=== PATIENT | female | born 1970 | race Caucasian/White ===

== ENCOUNTER 2018-06-18 11:23 | Inpatient (IN) ==
[2018-06-18] MEDS ORDERED: HYDROmorphone PF Inj 2 MG/ML Vial IV.PUSH ONE (12:09)
--- NOTE | 2018-06-18 12:12 | ED ---
HPI General Chief complaint: Abdominal Pain Stated complaint: abd pain x today/n/d Time Seen by Provider: 06/18/18 14:19 Source: patient Mode of arrival: ambulatory Limitations: no limitations History of Present Illness HPI narrative: This 48-year-old female is complaining of abdominal pain. She says she started having pain around 2:00 this morning. The pain is across her upper abdomen. She has been nauseated. She has a history of Crohn's disease for 28 years. She has had several surgeries related to the Crohn's disease and is currently on Humira. She had a colonoscopy done a couple of weeks ago which showed some mild inflammation. The pain she is having now does not feel like her Crohn's disease to her. She does feel distended. She is concerned that she may have a blockage during gallbladder problem. She has never had a gallbladder problem in the past. She has been on Humira for the past 8 years. Related Data Home Medications Medication Instructions Recorded Confirmed Humira 06/18/18 Allergies Allergy/AdvReac Type Severity Reaction Status Date / Time No Known Allergies Allergy Mild none Uncoded 06/18/18 11:38 Review of Systems ROS: all other systems reviewed are negative [facility] Medical History Medical History Crohn disease (Acute) Lupus (Acute) Surgical History Surgical History History of appendectomy (Acute) History of bowel resection (Acute) History of partial hysterectomy (Acute) Social History Social History Substance History: No History of Abuse Second Hand Smoke Exposure: No Smoking Status: Former smoker Tobacco Type: Cigarettes How Often Do You Have a Drink Containing Alcohol: 2 to 4 times a month Recent Travel in [facility] [[email or web address] within the Last 8 Weeks: No Recent Out of Country Travel within the Last 8 Weeks: No Exam Narrative Exam Narrative: GENERAL: Well-developed female SKIN: Focused skin assessment warm/dry. HEAD: Atraumatic. Normocephalic. EYES: Pupils equal and round. No scleral icterus. No injection or drainage. ENT: No nasal bleeding or discharge. Mucous membranes pink and moist. NECK: Trachea midline. No JVD. CARDIOVASCULAR: Regular rate and rhythm. No murmur appreciated. RESPIRATORY: No accessory muscle use. Clear to auscultation. Breath sounds equal bilaterally. GASTROINTESTINAL: Abdomen soft, there is tenderness in the right upper quadrant in the epigastric area. There is some mild distention. MUSCULOSKELETAL: No obvious deformities. No clubbing. No cyanosis. No edema. NEUROLOGICAL: Awake and alert. No obvious cranial nerve deficits. Motor grossly within normal limits. Normal speech. PSYCHIATRIC: Appropriate mood and affect; insight and judgment normal. Course Initial Documented Vital Signs Temperature 98.1 F 06/18/18 11:35 Pulse Rate 118 H 06/18/18 11:35 Respiratory Rate 20 06/18/18 11:35 Blood Pressure 124/73 06/18/18 11:35 Pulse Oximetry 99 06/18/18 11:35 Last Documented Vital Signs Temperature 98.8 F 06/19/18 00:00 Pulse Rate 82 06/19/18 00:00 Respiratory Rate 16 06/19/18 00:00 Blood Pressure 117/56 L 06/19/18 00:00 Pulse Oximetry 95 06/19/18 00:00 Medical Decision Making MDM Narrative Medical decision making narrative: Patient has been given IV fluids. She has been given pain medication and initially she had good response however the pain has come back on her. An ultrasound was obtained and shows a 2.3 cm stone in the gallbladder which is thought to be lodged in the neck of the gallbladder as it does not move with decubitus position. I have discussed the case with Dr. Ngo who requests that the patient be transferred to the main hospital as there is a good chance that she will require an open procedure in view of her previous surgeries. She will be started on antibiotics Medical Screen Exam Complete: Yes Emergency Medical Condition: Yes Differential Diagnosis Differential Diagnosis: Differential includes bowel obstruction, cholelithiasis , cholecystitis Lab Data Result diagrams: 06/19/18 06:37 06/19/18 06:37 Lab Results 06/18/18 06/18/18 06/18/18 Range/Units 12:30 12:30 14:05 CBC w Diff Auto diff final WBC 5.6 (4.0-11.0) th/mm3 RBC 4.39 (4.00-5.30) mil/mm3 Hgb 13.2 (11.6-15.3) gm/dL Hct 38.9 (35.0-46.0) % MCV 88.5 (80.0-100.0) fL MCH 30.1 (27.0-34.0) pg MCHC 34.0 (32.0-36.0) % RDW 12.6 (11.6-17.2) % Plt Count 201 (150-450) th/mm3 MPV 7.4 (7.0-11.0) fL Neut % (Auto) 84.4 H (16.0-70.0) % Lymph % (Auto) 7.5 L (9.0-44.0) % [place] % (Auto) 6.1 (0.0-8.0) % Eos % (Auto) 0.5 (0.0-4.0) % Baso % (Auto) 1.5 (0.0-2.0) % Neut # (Auto) 4.8 (1.8-7.7) th/mm3 Lymph # (Auto) 0.4 L (1.0-4.8) th/mm3 [place] # (Auto) 0.3 (0.0-0.9) th/mm3 Eos # (Auto) 0.0 (0.0-0.4) th/mm3 Baso # (Auto) 0.1 (0.0-0.2) th/mm3 WBC Differential . Differential Comment . Sodium 138 (136-145) meq/L Potassium 3.9 (3.5-5.1) meq/L Chloride 108 H (98-107) meq/L Carbon Dioxide 22.2 (21.0-32.0) meq/L Anion Gap 8 (5-15) meq/L BUN 11 (7-18) mg/dL Creatinine 0.58 (0.50-1.00) mg/dL Estimated GFR Greater than 89 (>89) mL/min Random Glucose 111 H (74-106) mg/dL Calcium 8.4 L (8.5-10.1) mg/dL Magnesium 1.9 (1.5-2.5) mg/dL Total Bilirubin 0.3 (0.2-1.0) mg/dL AST 21 (15-37) U/L ALT 28 (10-53) U/L Alkaline Phosphatase 81 (45-117) U/L Total Protein 7.5 (6.4-8.2) g/dL Albumin 3.5 (3.4-5.0) g/dL Lipase 129 (73-393) U/L Urine Color Yellow (Yellw/Straw) Urine Clarity Clear (Clear) Urine pH 6.0 (5.0-8.5) Ur Specific [place] 1.010 (1.002-1.035) Urine Protein Negative (Neg-Trace) mg/dL Urine Glucose (UA) Negative (Negative) mg/dL Urine Ketones Negative (Negative) mg/dL Urine Occult Blood Trace (Negative) Urine Nitrate Negative (Negative) Urine Bilirubin Negative (Negative) Urine Urobilinogen 0.2 (Less than 2) mg/dL Ur Leukocyte Esterase Negative (Negative) Urine RBC 0-3 (0-3) /hpf Ur Squamous Epith Cells 0-5 (0-5) /hpf Urine Bacteria Rare H (None) /hpf Micro UA Comment Culture not ind Ur Microscopic Review Microscopic reviewed Urine Culture Comments Culture not ind 06/19/18 06/19/18 Range/Units 06:37 06:37 CBC w Diff WBC 3.1 L (4.0-11.0) th/mm3 RBC 3.99 L (4.00-5.30) mil/mm3 Hgb 12.1 (11.6-15.3) gm/dL Hct 35.8 (35.0-46.0) % MCV 89.9 (80.0-100.0) fL MCH 30.4 (27.0-34.0) pg MCHC 33.8 (32.0-36.0) % RDW 13.6 (11.6-17.2) % Plt Count 168 (150-450) th/mm3 MPV 7.8 (7.0-11.0) fL Neut % (Auto) 51.7 (16.0-70.0) % Lymph % (Auto) 31.2 (9.0-44.0) % [place] % (Auto) 16.2 H (0.0-8.0) % Eos % (Auto) 0.4 (0.0-4.0) % Baso % (Auto) 0.5 (0.0-2.0) % Neut # (Auto) 1.6 L (1.8-7.7) th/mm3 Lymph # (Auto) 1.0 (1.0-4.8) th/mm3 [place] # (Auto) 0.5 (0.0-0.9) th/mm3 Eos # (Auto) 0.0 (0.0-0.4) th/mm3 Baso # (Auto) 0.0 (0.0-0.2) th/mm3 WBC Differential . Differential Comment Auto diff final Sodium 144 (136-145) meq/L Potassium 3.4 L (3.5-5.1) meq/L Chloride 112 H (98-107) meq/L Carbon Dioxide 23.6 (21.0-32.0) meq/L Anion Gap 8 (5-15) meq/L BUN 4 L (7-18) mg/dL Creatinine 0.58 (0.50-1.00) mg/dL Estimated GFR Greater than 89 (>89) mL/min Random Glucose 85 (74-106) mg/dL Calcium 7.8 L (8.5-10.1) mg/dL Magnesium (1.5-2.5) mg/dL Total Bilirubin 0.4 (0.2-1.0) mg/dL AST 32 (15-37) U/L ALT 32 (10-53) U/L Alkaline Phosphatase 80 (45-117) U/L Total Protein 6.1 L D (6.4-8.2) g/dL Albumin 2.9 L D (3.4-5.0) g/dL Lipase (73-393) U/L Urine Color (Yellw/Straw) Urine Clarity (Clear) Urine pH (5.0-8.5) Ur Specific [place] (1.002-1.035) Urine Protein (Neg-Trace) mg/dL Urine Glucose (UA) (Negative) mg/dL Urine Ketones (Negative) mg/dL Urine Occult Blood (Negative) Urine Nitrate (Negative) Urine Bilirubin (Negative) Urine Urobilinogen (Less than 2) mg/dL Ur Leukocyte Esterase (Negative) Urine RBC (0-3) /hpf Ur Squamous Epith Cells (0-5) /hpf Urine Bacteria (None) /hpf Micro UA Comment Ur Microscopic Review Urine Culture Comments Imaging Data Radiologist's impression: Abdomen/Pelvis CT 06/18/18 12:05 CONCLUSION: 1. Cholelithiasis. There is a single stone in the gallbladder but no inflammation is present to suggest acute gallbladder disease. 2. There is fluid within the colon consistent with the history of diarrhea. Additionally, the distal ileum is abnormal with mild dilatation and small bowel feces sign which could be secondary to partial obstruction given the appearance. However, there are no findings to indicate any definite acute inflammatory bowel disease. 3. Groundglass opacity and prominent lymph nodes in the jejunal mesentery of uncertain chronicity. This is most commonly seen as a normal variant but can be associated with inflammatory conditions. Gallbladder Ultrasound 06/18/18 12:05 CONCLUSION: 1. There is a single large stone measuring 2.3 cm that appears lodged in the gallbladder neck. It does not move with decubitus positioning. However, there are no associated findings to indicate gallbladder obstruction or inflammation, as above. 2. The remainder of the examination demonstrates no significant abnormality. Please note that the pancreas is not adequately visualized. Discharge Plan Discharge Disposition Patient Disposition: ED Admit(ED Internal Use Only) Discharge Condition Condition: Stable Discharge Order Discharge Orders: ED Use Only Admit Order (Routine); Ordered 06/18/18 Ordered By: Cody Saenz Discharge Details Diagnosis: Acute cholecystitis Physicians Team ED Provider: Cody Saenz Primary Care Provider: Cheikh Rider Attending Provider: Timbo Galeano Other Providers: Lupillo Handy ; Jeremy Ngo Discharge Interventions Interventions: ED Discharge Assessment Last Done: 06/18/18 19:34 Status ED Status: Left Department Discharge Information Discharge Date/Time: 06/18/18 20:00
[2018-06-18] MEDS: Sod Chloride 0.9% Inj 1,000 ML IV.CONT SCH ×3 (12:32→17:17)
[2018-06-18 12:37] LABS: Baso # (Auto) 0.1 th/mm3 (0.0-0.2); Baso % (Auto) 1.5 % (0.0-2.0); Eos % (Auto) 0.5 % (0.0-4.0); Hematocrit 38.9 % (35.0-46.0); Hemoglobin 13.2 gm/dL (11.6-15.3); Lymph # (Auto) 0.4 th/mm3 (1.0-4.8); Lymph % (Auto) 7.5 % (9.0-44.0); Mean Corpuscular Hemoglobin 30.1 pg (27.0-34.0); Mean Corpuscular Volume 88.5 fL (80.0-100.0); Mean Platelet Volume 7.4 fL (7.0-11.0); Mono # (Auto) 0.3 th/mm3 (0.0-0.9); Mono % (Auto) 6.1 % (0.0-8.0); Neut # (Auto) 4.8 th/mm3 (1.8-7.7); Neut % (Auto) 84.4 % (16.0-70.0); Platelet Count 201 th/mm3 (150-450); Red Blood Count 4.39 mil/mm3 (4.00-5.30); Red Cell Distribution Width 12.6 % (11.6-17.2); White Blood Count 5.6 th/mm3 (4.0-11.0)
[2018-06-18 12:50] LABS: Chloride 108 meq/L (98-107); Potassium 3.9 meq/L (3.5-5.1); Sodium 138 meq/L (136-145)
[2018-06-18 12:53] LABS: Calcium 8.4 mg/dL (8.5-10.1)
[2018-06-18 12:54] LABS: Albumin 3.5 g/dL (3.4-5.0); Anion Gap 8 meq/L (5-15); Blood Urea Nitrogen 11 mg/dL (7-18); Carbon Dioxide 22.2 meq/L (21.0-32.0); Glucose,Random 111 mg/dL (74-106); Lipase 129 U/L (73-393); Magnesium 1.9 mg/dL (1.5-2.5)
[2018-06-18 12:57] LABS: Alanine Aminotransferase 28 U/L (10-53); Aspartate Aminotransferase 21 U/L (15-37); Glomerular Filtration Rate Greater Than 89 mL/min (>89)
[2018-06-18 12:58] LABS: Total Protein 7.5 g/dL (6.4-8.2)
[2018-06-18 13:00] LABS: Alkaline Phosphatase 81 U/L (45-117)
--- NOTE | 2018-06-18 13:49 | US ---
EXAM DATE: 06/18/2018 1:31 PM EST AGE/SEX: 48 years / Female INDICATIONS: Gallstones; abdominal pain and nausea. CLINICAL DATA: This is the patient's initial encounter. Patient reports that signs and symptoms have been present for 1 day and indicates a pain score of 4/10. MEDICAL/SURGICAL HISTORY: . Crohn's disease. . Surgery for Crohn's disease. Colonoscopy. COMPARISON: No prior exams available for comparison. MEASUREMENTS: Liver:__ 15.1 cm. Common Bile Duct:__ 4mm. FINDINGS: Liver: Normal echogenicity without focal lesion or ductal dilatation. Portal Vein: Hepatopedal flow seen in portal vein. Common Duct: No intraluminal mass or stone visualized. Gallbladder: There is a 2.3 cm shadowing stone in the gallbladder neck. No wall thickening or perich olecystic fluid is present. Sonographic Gotti sign is negative. The stone in the gallbladder neck do es not move with decubitus or upright positioning. A focal area of ringdown artifact is present along the gallbladder wall. Pancreas: Not adequately visualized secondary to bowel gas. Right Kidney: Normal echogenicity and cortical thickness. No mass or hydronephrosis. Other: None. CONCLUSION: 1. There is a single large stone measuring 2.3 cm that appears lodged in the gallbladder neck. It do es not move with decubitus positioning. However, there are no associated findings to indicate gallbla dder obstruction or inflammation, as above. 2. The remainder of the examination demonstrates no significant abnormality. Please note that the pa ncreas is not adequately visualized. Electronically signed by: Anthony Jeffries MD Board Certified Radiologist 06/18/2018 1:47 PM EST
[2018-06-18] MEDS ORDERED: HYDROmorphone PF Inj 0.5 MG/0.5 ML Syringe IV.PUSH STA (13:58)
[2018-06-18] MEDS ORDERED: Piperacil/Tazo 3.375 GM Premix 3.375 GM/50 ML PIGGYBACK IV.SIG ONE (14:15)
[2018-06-18 14:24] LABS: Bilirubin,Urine Negative (Negative); Clarity,Urine Clear (Clear); Color,Urine Yellow (Yellw/Straw); Glucose,Urine (UA) Negative (Negative); Leukocyte Esterase,Urine Negative (Negative); Nitrite,Urine Negative (Negative); Urobilinogen,Urine 0.2 mg/dL (Less than 2)
[2018-06-18 14:32] LABS: RBC,Urine 0-3 /hpf (0-3)
[2018-06-18 14:33] LABS: Bacteria,Urine Rare /hpf; Squamous Epithelial Cell,Urine 0-5 /hpf (0-5)
--- NOTE | 2018-06-18 14:56 | CT ---
EXAM DATE: 06/18/2018 2:39 PM EST AGE/SEX: 48 years / Female INDICATIONS: Upper abdominal pain. Nausea and diarrhea. CLINICAL DATA: This is the patient's initial encounter. Patient reports that signs and symptoms have been present for 1 day and indicates a pain score of 7/10. MEDICAL/SURGICAL HISTORY: Crohn's disease. Lupus. Appendectomy. Colon resection. Hysterectom y. ORAL CONTRAST: No oral contrast ingested. RADIATION DOSE: 6.95 CTDI (mGy) COMPARISON: No prior exams available for comparison. TECHNIQUE: Multiple contiguous axial images were obtained through the abdomen and pelvis following b olus infusion of 95 ml Omnipaque 350 (iohexol) nonionic water-soluble contrast as a single exam dos e. No oral contrast ingested. Using automated exposure control and adjustment of the mA and/or kV ac cording to patient size, radiation dose was kept as low as reasonably achievable to obtain optimal di agnostic quality images. DICOM format image data is available electronically for review and comparis on. FINDINGS: Lower chest: No acute abnormality is identified. Hepatobiliary: No focal liver lesion is identified. Hepatic vasculature demonstrates no abnormality. There is a single 2 cm stone in the gallbladder in the region of the neck. There is no associated wal l thickening or surrounding inflammation. There is no bile duct dilatation. Kidneys: No hydronephrosis, stone, or mass. Adrenal Glands: Within normal limits. Spleen: Within normal limits. Pancreas: Within normal limits. Vascular: The aorta is nonaneurysmal. Bowel/Mesentery: Stomach is within normal limits. The jejunum demonstrates no abnormality. The distal ileum is dilated measuring up to 3.1 cm and contains fluid and fecal-like material. There are a coup le areas suspicious for a luminal narrowing but no significant wall thickening, abnormal enhancement, or perienteric inflammation is present to suggest acute inflammation. There has been prior surgery a t the small bowel colon anastomosis. Multiple clips are present in the ileocolic mesentery. There is fluid within the colon. In the jejunal mesentery there is mild groundglass attenuation with several p rominent lymph nodes. Abdominal Wall: No hernia is visualized. Retroperitoneum: No lymphadenopathy. Bladder: No wall thickening or mass. Reproductive: Within normal limits. Inguinal: No lymphadenopathy or hernia. Musculoskeletal: No acute osseous abnormality is identified. CONCLUSION: 1. Cholelithiasis. There is a single stone in the gallbladder but no inflammation is present to sugg est acute gallbladder disease. 2. There is fluid within the colon consistent with the history of diarrhea. Additionally, the distal ileum is abnormal with mild dilatation and small bowel feces sign which could be secondary to partia l obstruction given the appearance. However, there are no findings to indicate any definite acute inf lammatory bowel disease. 3. Groundglass opacity and prominent lymph nodes in the jejunal mesentery of uncertain chronicity. T his is most commonly seen as a normal variant but can be associated with inflammatory conditions. Electronically signed by: Anthony Jeffries MD Board Certified Radiologist 06/18/2018 2:55 PM EST
[2018-06-18] MEDS ORDERED: Acetaminophen 325 MG Tablet PO PRN (15:00)
[2018-06-18] MEDS ORDERED: Bisacodyl 10 MG Supp RECTAL PRN (15:00)
--- NOTE | 2018-06-18 17:57 | P.CONGS ---
[facility] Gen Surgery Consult Note Consult date: 06/19/18 Reason for consult: abdominal pain Requesting physician: Dirk Harris Narrative: This is a 48 year old female with a past medical history of Crohn's disease s/p resection about 20 years ago and lupus. The patient reports she was in her usual state of health on Friday. She went to bed and woke up about 199 with acute onset of RIGHT upper quadrant abdominal pain and lower abdominal pain. She reports nausea without any vomiting. A gallbladder ultrasound was obtained which shows a large single stone in the neck of the gallbladder neck. A CT abdomen/pelvis was done which again shows cholelithiasis ; there is mild dilatation of the distal ileum. Her WBC is normal. Her LFTs are normal. Her lipase is normal. A General Surgery consultation has been requested. Review of Systems All other systems reviewed negative except as stated in [facility] - History History Provided By: Patient - Medical History Medical History: Medical History (Last Reviewed 06/19/18 @ 14:10 by SPIKE Quiñones) Crohn disease Lupus - Surgical History Surgical History: Surgical History (Last Reviewed 06/19/18 @ 14:10 by SPIKE Quiñones) History of appendectomy History of bowel resection History of partial hysterectomy - Family History Family History: Family History (Last Reviewed 06/18/18 @ 14:03 by Cody Saenz MD) Other Family history non-contributory - Tobacco History Smoking Status: Former smoker - Alcohol History How Often Do You Have a Drink Containing Alcohol: 2 to 4 times a month - Substance Use History Substance History: No History of Abuse - Travel History Recent Travel in the [facility] Within the Last 8 Weeks: No Recent Travel Out of the Country Within the Last 8 Weeks: No - Immunization History Tetanus Immunization: Unsure Medications and Allergies Allergies Allergy/AdvReac Type Severity Reaction Status Date / Time No Known Allergies Allergy Mild none Uncoded 06/18/18 11:38 Home Medications Medication Instructions Recorded Confirmed Type Humira 06/18/18 History Active Medications: Active Medications Acetaminophen (Tylenol) 650 mg PO Q4H PRN PRN Reason: Temp > 100.4 Al Hydroxide/Mg Hydroxide (Milk Of Magnesia Liq) 30 ml PO Q12H PRN PRN Reason: Mild Constipation Bisacodyl (Dulcolax Supp) 10 mg RECTAL DAILY PRN PRN Reason: SEVERE CONSITIPATION Sodium Chloride (Ns Inj) 1,000 mls @ 300 mls/hr IV.CONT .Q3H20M LINDA Last Admin: 06/18/18 17:16 Dose: Not Given Sodium Chloride (Ns Inj) 1,000 mls @ 100 mls/hr IV.CONT .Q10H LINDA Last Admin: 06/18/18 17:17 Dose: 100 mls/hr Piperacillin/Tazobactam/Dextrose (Zosyn 4.5 Gm Premix) 4.5 gm in 100 mls @ 200 mls/hr IV.SIG Q6H [facility] Lactulose (Lactulose Liq) 30 ml PO DAILY PRN PRN Reason: SEVERE CONSITIPATION Ondansetron HCl (Zofran Inj) 4 mg IV.PUSH Q6H PRN PRN Reason: NAUSEA OR VOMITING Sennosides (Senokot) 17.2 mg PO Q12H PRN PRN Reason: Moderate Constipation Sodium Chloride (Ns Flush) 2 ml IV.FLUSH PRN PRN PRN Reason: FLUSH AFTER USING IV ACCESS Sodium Chloride (Ns Flush) 2 ml IV.FLUSH BID [facility] Sodium Chloride (Ns Flush) 2 ml IV.FLUSH PRN PRN PRN Reason: FLUSH AFTER USING IV ACCESS Exam Vital signs: Vital Signs 06/18/18 11:35 06/18/18 13:49 06/18/18 17:17 Temperature 98.1 F Pulse Rate 118 H 94 H 98 H Respiratory Rate 20 18 16 Blood Pressure 124/73 117/78 95/55 L Pulse Oximetry 99 96 98 Intake & Output 06/17/18 06/18/18 06/18/18 18:59 06:59 18:59 Intake Total 1050 / 1050 Balance 1050 / 1050 Weight 68 kg Intake: IV 1050 / 1050 NS Inj 1,000 ML @ 300 mls/hr IV 1000 / 1000 .CONT .Q3H20M [facility] Rx#: [id number] Zosyn 3.375 GM Premix 3.375 gm 50 / 50 In 50 ml @ 100 mls/hr IV.SIG ONCE ONE Rx#:[id number] Narrative: GENERAL: Very pleasant 48 year old female resting in bed in no acute distress. SKIN: Warm and dry. HEAD: Atraumatic. Normocephalic. EYES: Pupils equal and round. No scleral icterus. No injection or drainage. ENT: No nasal bleeding or discharge. Mucous membranes pink and moist. NECK: Trachea midline. CARDIOVASCULAR: Regular rate and rhythm. RESPIRATORY: No accessory muscle use. Clear to auscultation. Breath sounds equal bilaterally. GASTROINTESTINAL: Abdomen soft. Mildly distended. RUQ and epigastric tenderness with palpation. Well healed midline scar. MUSCULOSKELETAL: Extremities without clubbing, cyanosis, or edema. No obvious deformities. NEUROLOGICAL: Awake and alert. No obvious cranial nerve deficits. Motor grossly within normal limits. Five out of 5 muscle strength in the arms and legs. Normal speech. PSYCHIATRIC: Appropriate mood and affect; insight and judgment normal. - Routine Abdominal Exam Present: soft Comments: No tenderness or rebound; no distention. Well-healed midline infraumbilical incision. Results - Labs 06/19/18 06:37 06/19/18 06:37 Laboratory Results - last 24 hr 06/18/18 06/18/18 06/18/18 12:30 12:30 14:05 CBC w Diff Auto diff final WBC 5.6 RBC 4.39 Hgb 13.2 Hct 38.9 MCV 88.5 MCH 30.1 MCHC 34.0 RDW 12.6 Plt Count 201 MPV 7.4 Neut % (Auto) 84.4 H Lymph % (Auto) 7.5 L [place] % (Auto) 6.1 Eos % (Auto) 0.5 Baso % (Auto) 1.5 Neut # (Auto) 4.8 Lymph # (Auto) 0.4 L [place] # (Auto) 0.3 Eos # (Auto) 0.0 Baso # (Auto) 0.1 WBC Differential . Differential Comment . Sodium 138 Potassium 3.9 Chloride 108 H Carbon Dioxide 22.2 Anion Gap 8 BUN 11 Creatinine 0.58 Estimated GFR Greater than 89 Random Glucose 111 H Calcium 8.4 L Magnesium 1.9 Total Bilirubin 0.3 AST 21 ALT 28 Alkaline Phosphatase 81 Total Protein 7.5 Albumin 3.5 Lipase 129 Urine Color Yellow Urine Clarity Clear Urine pH 6.0 Ur Specific [place] 1.010 Urine Protein Negative Urine Glucose (UA) Negative Urine Ketones Negative Urine Occult Blood Trace Urine Nitrate Negative Urine Bilirubin Negative Urine Urobilinogen 0.2 Ur Leukocyte Esterase Negative Urine RBC 0-3 Ur Squamous Epith Cells 0-5 Urine Bacteria Rare H Micro UA Comment Culture not ind Ur Microscopic Review Microscopic reviewed Urine Culture Comments Culture not ind - Imaging Imaging: ITS Impressions Abdomen/Pelvis CT 06/18/18 12:05 CONCLUSION: 1. Cholelithiasis. There is a single stone in the gallbladder but no inflammation is present to suggest acute gallbladder disease. 2. There is fluid within the colon consistent with the history of diarrhea. Additionally, the distal ileum is abnormal with mild dilatation and small bowel feces sign which could be secondary to partial obstruction given the appearance. However, there are no findings to indicate any definite acute inflammatory bowel disease. 3. Groundglass opacity and prominent lymph nodes in the jejunal mesentery of uncertain chronicity. This is most commonly seen as a normal variant but can be associated with inflammatory conditions. Gallbladder Ultrasound 06/18/18 12:05 CONCLUSION: 1. There is a single large stone measuring 2.3 cm that appears lodged in the gallbladder neck. It does not move with decubitus positioning. However, there are no associated findings to indicate gallbladder obstruction or inflammation, as above. 2. The remainder of the examination demonstrates no significant abnormality. Please note that the pancreas is not adequately visualized. CT scan - abdomen: report reviewed, image reviewed US - abdomen: report reviewed, image reviewed Assessment and Plan - Assessment (1) Symptomatic cholelithiasis Code(s): K80.20 - Calculus of gallbladder without cholecystitis without obstruction Status: Acute Plan: 48 year old female with symptomatic cholelithiasis; dilated distal ileum -Plan to transfer patient to [facility] as she has a higher risk than normal for open procedure due to prior operation -Plan for laparoscopic cholecystectomy tomorrow -Sips of clear liquids tonight; NPO after MN -Obtain consents -Explained procedure in detail including higher than normal risk for open procedure due to prior surgical history -Thank you for this consult; We will continue to follow Patient seen and examined after transfer to the [facility]. Due to previous abdominal surgery, I have significant concern for patient requiring open procedure and/or bowel resection. As this is not a straightforward procedure, patient would best be served by transfer. There is also small possibility that she will require bowel resection due to her Crohn's disease. She and I have discussed this. I have also discussed risks of the procedure including but not limited to: Bleeding, infection, bile duct injury, bowel injury being higher than most other patients, possible need for postoperative endoscopy, adhesion formation, need for reoperation. I have discussed remedies, consequences, alternatives, and convalescence; she vocalizes understanding and agrees to proceed. The exam, history, and the medical decision-making described in the above note were completed with the assistance of the mid-level provider. I reviewed and agree with the findings presented. I attest that I had a [id number] encounter with the patient on the same day, and personally performed and documented my assessment and findings in the medical record. - Plan Discussed Condition With: Dr. Huber Melendez
[2018-06-18] MEDS: Piperacil/Tazo 4.5 GM Premix 4.5 GM/100 ML BAG IV.SIG SCH (20:21)
--- NOTE | 2018-06-18 21:49 | P.HPIM ---
History of Present Illness Service: [facility] Primary Care Physician: Cheikh Rider MD Chief Complaint: Abdominal pain History of Present Illness: 48-year-old female with a history of small bowel resection, Crohn's presented to the ED with complaints of abdominal pain. She states that the pain began this morning, intermittent, 8/10, to right upper and right lower quadrant, with no radiation, associated nausea, and she has been unable to eat or drink. Last bowel movement was liquid today, last solid was yesterday. She denies any dark colored stools. No chest pain or shortness of breath noted. Inpatient Certification Inpatient Certification: I certify that the inpatient services were ordered in accordance with Medicare regulations governing the order. This includes certification that hospital inpatient services are reasonable and necessary and in the case of services not specified as inpatient-only under 42 CFR 419.22(n), that they are appropriately provided as inpatient services in accordance to with the 2-midnight benchmark under 43 CFR 412.3(e) Estimated Total Length of Stay (Days): 2 Plans for Post Hospital Care: Home Review of Systems Review of Systems: all other systems reviewed are negative ON LICENSE OF [facility] Medical History Medical History Crohn disease (Acute) Lupus (Acute) Surgical History Surgical History History of appendectomy (Acute) History of bowel resection (Acute) History of partial hysterectomy (Acute) Family History Family History Other Family history non-contributory Social History Social History Substance History: No History of Abuse Second Hand Smoke Exposure: No Smoking Status: Former smoker Tobacco Type: Cigarettes How Often Do You Have a Drink Containing Alcohol: 2 to 4 times a month Recent Travel in [facility] within the Last 8 Weeks: No Recent Out of Country Travel within the Last 8 Weeks: No Immunization History Tetanus Immunization: Unsure Hx Influenza Vaccine This Season: No Medications and Allergies Allergies Allergy/AdvReac Type Severity Reaction Status Date / Time No Known Allergies Allergy Mild none Uncoded 06/18/18 11:38 Home Medications Medication Instructions Recorded Confirmed Type Humira 06/18/18 History Active Medications: Active Medications Acetaminophen (Tylenol) 650 mg PO Q4H PRN PRN Reason: Temp > 100.4 Al Hydroxide/Mg Hydroxide (Milk Of Magnesia Liq) 30 ml PO Q12H PRN PRN Reason: Mild Constipation Bisacodyl (Dulcolax Supp) 10 mg RECTAL DAILY PRN PRN Reason: SEVERE CONSITIPATION Sodium Chloride (Ns Inj) 1,000 mls @ 300 mls/hr IV.CONT .Q3H20M [facility] Last Admin: 06/18/18 17:16 Dose: Not Given Sodium Chloride (Ns Inj) 1,000 mls @ 100 mls/hr IV.CONT .Q10H [facility] Last Admin: 06/18/18 17:17 Dose: 100 mls/hr Piperacillin/Tazobactam/Dextrose (Zosyn 4.5 Gm Premix) 4.5 gm in 100 mls @ 200 mls/hr IV.SIG Q6H [facility] Last Admin: 06/18/18 20:21 Dose: 200 mls/hr Lactulose (Lactulose Liq) 30 ml PO DAILY PRN PRN Reason: SEVERE CONSITIPATION Ondansetron HCl (Zofran Inj) 4 mg IV.PUSH Q6H PRN PRN Reason: NAUSEA OR VOMITING Sennosides (Senokot) 17.2 mg PO Q12H PRN PRN Reason: Moderate Constipation Sodium Chloride (Ns Flush) 2 ml IV.FLUSH PRN PRN PRN Reason: FLUSH AFTER USING IV ACCESS Sodium Chloride (Ns Flush) 2 ml IV.FLUSH BID [facility] Last Admin: 06/18/18 20:17 Dose: 2 ml Sodium Chloride (Ns Flush) 2 ml IV.FLUSH PRN PRN PRN Reason: FLUSH AFTER USING IV ACCESS Physical Exam Vital signs: Last Vital Signs Temp 99.3 F 06/18/18 20:00 Pulse 91 H 06/18/18 20:00 Resp 18 06/18/18 20:00 BP 111/58 L 06/18/18 20:00 Pulse Ox 96 06/18/18 20:00 Intake & Output 06/16/18 06/17/18 06/18/18 06/19/18 06:59 06:59 06:59 06:59 Intake Total 1050 / 1050 Balance 1050 / 1050 Weight 64.6 kg Narrative: GENERAL: Well-nourished patient in no acute distress SKIN: Warm and dry. HEAD: Normocephalic. EYES: No scleral icterus. No injection or drainage. NECK: Supple, trachea midline. No JVD or lymphadenopathy. CARDIOVASCULAR: Regular rate and rhythm without murmurs, gallops, or rubs. RESPIRATORY: Breath sounds equal bilaterally. No accessory muscle use. GASTROINTESTINAL: Abdomen soft, right upper and right lower quadrant tenderness , nondistended. MUSCULOSKELETAL: No cyanosis, or edema. BACK: Nontender without obvious deformity. No CVA tenderness. Results Labs CBC & Chem 7: 06/18/18 12:30 06/18/18 12:30 Imaging Impressions Abdomen/Pelvis CT 06/18/18 12:05 CONCLUSION: 1. Cholelithiasis. There is a single stone in the gallbladder but no inflammation is present to suggest acute gallbladder disease. 2. There is fluid within the colon consistent with the history of diarrhea. Additionally, the distal ileum is abnormal with mild dilatation and small bowel feces sign which could be secondary to partial obstruction given the appearance. However, there are no findings to indicate any definite acute inflammatory bowel disease. 3. Groundglass opacity and prominent lymph nodes in the jejunal mesentery of uncertain chronicity. This is most commonly seen as a normal variant but can be associated with inflammatory conditions. Gallbladder Ultrasound 06/18/18 12:05 CONCLUSION: 1. There is a single large stone measuring 2.3 cm that appears lodged in the gallbladder neck. It does not move with decubitus positioning. However, there are no associated findings to indicate gallbladder obstruction or inflammation, as above. 2. The remainder of the examination demonstrates no significant abnormality. Please note that the pancreas is not adequately visualized. Caprini VTE Risk Assessment Caprini VTE Risk Assessment: No/Low Risk (score <= 1) Caprini Risk Assessment Model: Point Value = 1 Point Value = 2 Point Value = 3 Point Value = 5 Age 41-60 Minor surgery BMI > 25 kg/m2 Swollen legs Varicose veins or History of unexplained or recurrent spontaneous Oral contraceptives or hormone replacement Sepsis (< 1 month) Serious lung disease, including pneumonia (< 1 month) Abnormal pulmonary function Acute myocardial infarction Congestive heart failure (< 1 month) History of inflammatory bowel disease Medical patient at bed rest Age 61-74 Arthroscopic surgery Major open surgery (> 45 min) Laparoscopic surgery (> 45 min) Malignancy Confined to bed (> 72 hours) Immobilizing plaster cast Central venous access Age >= 75 History of VTE Family history of VTE Factor V Leiden Prothrombin [id number] Lupus anticoagulant Anticardiolipin antibodies Elevated serum homocysteine Heparin-induced thrombocytopenia Other congenital or acquired thrombophilia Stroke (< 1 month) Elective arthroplasty Hip, pelvis, or leg fracture Acute spinal cord injury (< 1 month) Prophylaxis Regimen: Total Risk Factor Score Risk Level Prophylaxis Regimen 0-1 Low Early ambulation 2 Moderate Order ONE of the following: *Sequential Compression Device (SCD) *Heparin 5000 units SQ BID 3-4 Higher Order ONE of the following medications: *Heparin 5000 units SQ TID *Enoxaparin/Lovenox 40 mg SQ daily (WT < 150 kg, CrCl > 30 mL/min) *Enoxaparin/Lovenox 30 mg SQ daily (WT < 150 kg, CrCl > 10-29 mL/min) *Enoxaparin/Lovenox 30 mg SQ BID (WT < 150 kg, CrCl > 30 mL/min) AND/OR *Sequential Compression Device (SCD) 5 or more Highest Order ONE of the following medications: *Heparin 5000 units SQ TID (Preferred with Epidurals) *Enoxaparin/Lovenox 40 mg SQ daily (WT < 150 kg, CrCl > 30 mL/min) *Enoxaparin/Lovenox 30 mg SQ daily (WT < 150 kg, CrCl > 10-29 mL/min) *Enoxaparin/Lovenox 30 mg SQ BID (WT < 150 kg, CrCl > 30 mL/min) AND *Sequential Compression Device (SCD) Assessment and Plan Plan 48-year-old female with a history of small bowel resection, Crohn's presented to the ED with complaints of abdominal pain. Partial SBO Abdominal CT reviewed and shows the distal ileum is abnormal with mild dilatation and small bowel feces sign which could be secondary to partial obstruction -IVF for hydration -Consult general surgery for evaluation -NPO Cholelithiasis Gallbladder US reviewed and shows Cholelithiasis. There is a single stone in the gallbladder but no inflammation is present to suggest acute gallbladder disease -consult GI for evaluation -NPO -Pain management with IV dilaudid DVT prophylaxis: SCDs H&P: Quality VTE Deep Vein Thrombosis/Pulmonary Embolism Present on Admission: No
[2018-06-18] MEDS: HYDROmorphone PF Inj 1 MG/ML Ampul IV.PUSH PRN (22:31)
[2018-06-19] MEDS: Sod Chloride 0.9% Inj 1,000 ML IV.CONT SCH ×8 (01:55→23:45)
[2018-06-19] MEDS: Piperacil/Tazo 4.5 GM Premix 4.5 GM/100 ML BAG IV.SIG SCH ×4 (01:57→19:59)
[2018-06-19] MEDS ORDERED: Chlorhexidine Gluconate 2% 1 Pack (2 Cloths) TOPICAL ONE (02:47)
[2018-06-19] MEDS: HYDROmorphone PF Inj 1 MG/ML Ampul IV.PUSH PRN ×2 (06:42→11:13)
[2018-06-19 07:09] LABS: Baso % (Auto) 0.5 % (0.0-2.0); Eos % (Auto) 0.4 % (0.0-4.0); Hematocrit 35.8 % (35.0-46.0); Hemoglobin 12.1 gm/dL (11.6-15.3); Lymph % (Auto) 31.2 % (9.0-44.0); Mean Corpuscular HGB Conc 33.8 % (32.0-36.0); Mean Corpuscular Hemoglobin 30.4 pg (27.0-34.0); Mean Corpuscular Volume 89.9 fL (80.0-100.0); Mean Platelet Volume 7.8 fL (7.0-11.0); Mono # (Auto) 0.5 th/mm3 (0.0-0.9); Mono % (Auto) 16.2 % (0.0-8.0); Neut # (Auto) 1.6 th/mm3 (1.8-7.7); Neut % (Auto) 51.7 % (16.0-70.0); Platelet Count 168 th/mm3 (150-450); Red Blood Count 3.99 mil/mm3 (4.00-5.30); Red Cell Distribution Width 13.6 % (11.6-17.2); White Blood Count 3.1 th/mm3 (4.0-11.0)
[2018-06-19 07:42] LABS: Albumin 2.9 g/dL (3.4-5.0); Anion Gap 8 meq/L (5-15); Aspartate Aminotransferase 32 U/L (15-37); Blood Urea Nitrogen 4 mg/dL (7-18); Calcium 7.8 mg/dL (8.5-10.1); Carbon Dioxide 23.6 meq/L (21.0-32.0); Chloride 112 meq/L (98-107); Glomerular Filtration Rate Greater Than 89 mL/min (>89); Glucose,Random 85 mg/dL (74-106); Potassium 3.4 meq/L (3.5-5.1); Sodium 144 meq/L (136-145)
[2018-06-19 07:44] LABS: Alanine Aminotransferase 32 U/L (10-53); Alkaline Phosphatase 80 U/L (45-117); Total Protein 6.1 g/dL (6.4-8.2)
[2018-06-19] MEDS ORDERED: Bupivacaine/Epinephrine Inj 0.25% 50 ML Vial ONE (13:42)
--- NOTE | 2018-06-19 14:05 | P.PNIM ---
Subjective Interval history: Follow-up visit abdominal pain, Crohn's, partial SBO. Patient seen and examined today. Reports she is feeling better compared to yesterday. States she has a headache and does not know whether it is because she does not have any caffeine today because of her n.p.o. status and she also took Dilaudid. States that she is trying to rest, pending surgery at 4:30 PM. Reports diarrhea , liquid, about x2 overnight. Otherwise, denies SOB/ dyspnea. Denies chest pain, palpitations, headaches, dizziness. Denies fevers, chills, n/v. Denies hematuria, dysuria. Physical Exam Vital signs: Vital Signs 06/18/18 17:17 06/18/18 18:32 06/18/18 20:00 Temperature 99.3 F Pulse Rate 98 H 90 91 H Respiratory Rate 16 16 18 Blood Pressure 95/55 L 90/61 L 111/58 L Pulse Oximetry 98 97 96 06/18/18 23:01 06/19/18 00:00 06/19/18 08:00 Temperature 98.8 F 98.2 F Pulse Rate 82 80 Respiratory Rate 18 16 18 Blood Pressure 117/56 L 106/53 L Pulse Oximetry 95 94 L 06/19/18 12:00 Temperature 98.2 F Pulse Rate 75 Respiratory Rate 17 Blood Pressure 107/53 L Pulse Oximetry 95 Intake & Output 06/18/18 06/19/18 06/19/18 18:59 06:59 18:59 Intake Total 1050 / 1050 1920 / 1920 Balance 1050 / 1050 1920 / 1920 Weight 68 kg 66.2 kg Intake: IV 1050 / 1050 1200 / 1200 NS Inj 1,000 ML @ 100 mls/hr IV 1000 / 1000 1000 / 1000 .CONT .Q10H [facility] Rx#:[id number] Zosyn 3.375 GM Premix 3.375 gm 50 / 50 In 50 ml @ 100 mls/hr IV.SIG ONCE ONE Rx#:[id number] Zosyn 4.5 GM Premix 4.5 gm In 200 / 200 100 ml @ 200 mls/hr IV.SIG Q6H [facility] Rx#:[id number] Oral 720 / 720 Other: # Voids 1 3 Date of Last Bowel Movement 06/19/18 # Bowel Movements 1 1 Weight On Admission 64.6 kg Narrative: GENERAL: This is a well-nourished, well-developed patient, in no apparent distress. SKIN: Warm and dry HEENT: Normocephalic. Pupils equal round and reactive. Nose without bleeding. Airway patent. NECK: Trachea midline. CARDIOVASCULAR: Regular rate and rhythm without murmurs, gallops, or rubs. RESPIRATORY: Clear to auscultation. Breath sounds equal bilaterally. No wheezes , rales, or rhonchi. GASTROINTESTINAL: Abdomen soft, nondistended. Bowel Sounds hypoactive. Mild tenderness to palpate mid epigastric region. MUSCULOSKELETAL: Extremities without clubbing, cyanosis, or edema. NEUROLOGICAL: Awake and alert. No focal neuro deficit. Moves all extremities. Normal speech. Results - Labs CBC & Chem 7: 06/19/18 06:37 06/19/18 06:37 Laboratory Results - last 24 hr 06/18/18 06/19/18 06/19/18 14:05 06:37 06:37 WBC 3.1 L RBC 3.99 L Hgb 12.1 Hct 35.8 MCV 89.9 MCH 30.4 MCHC 33.8 RDW 13.6 Plt Count 168 MPV 7.8 Neut % (Auto) 51.7 Lymph % (Auto) 31.2 [place] % (Auto) 16.2 H Eos % (Auto) 0.4 Baso % (Auto) 0.5 Neut # (Auto) 1.6 L Lymph # (Auto) 1.0 [place] # (Auto) 0.5 Eos # (Auto) 0.0 Baso # (Auto) 0.0 WBC Differential . Differential Comment Auto diff final Sodium 144 Potassium 3.4 L Chloride 112 H Carbon Dioxide 23.6 Anion Gap 8 BUN 4 L Creatinine 0.58 Estimated GFR Greater than 89 Random Glucose 85 Calcium 7.8 L Total Bilirubin 0.4 AST 32 ALT 32 Alkaline Phosphatase 80 Total Protein 6.1 L D Albumin 2.9 L D Urine Color Yellow Urine Clarity Clear Urine pH 6.0 Ur Specific [place] 1.010 Urine Protein Negative Urine Glucose (UA) Negative Urine Ketones Negative Urine Occult Blood Trace Urine Nitrate Negative Urine Bilirubin Negative Urine Urobilinogen 0.2 Ur Leukocyte Esterase Negative Urine RBC 0-3 Ur Squamous Epith Cells 0-5 Urine Bacteria Rare H Micro UA Comment Culture not ind Ur Microscopic Review Microscopic reviewed Urine Culture Comments Culture not ind - Imaging Impressions Abdomen/Pelvis CT 06/18/18 12:05 CONCLUSION: 1. Cholelithiasis. There is a single stone in the gallbladder but no inflammation is present to suggest acute gallbladder disease. 2. There is fluid within the colon consistent with the history of diarrhea. Additionally, the distal ileum is abnormal with mild dilatation and small bowel feces sign which could be secondary to partial obstruction given the appearance. However, there are no findings to indicate any definite acute inflammatory bowel disease. 3. Groundglass opacity and prominent lymph nodes in the jejunal mesentery of uncertain chronicity. This is most commonly seen as a normal variant but can be associated with inflammatory conditions. Assessment and Plan - Plan 48-year-old female with a history of small bowel resection, Crohn's presented to the ED with complaints of abdominal pain. Partial SBO Abdominal CT reviewed and shows the distal ileum is abnormal with mild dilatation and small bowel feces sign which could be secondary to partial obstruction -IVF for hydration -General surgery consulted for evaluation, plan for possible surgical intervention today -NPO Cholelithiasis Gallbladder US reviewed and shows Cholelithiasis. There is a single stone in the gallbladder but no inflammation is present to suggest acute gallbladder disease -consult GI for evaluation -NPO -Pain management with IV Dilaudid, Tylenol for KENNEDY DVT prophylaxis: SCDs Full code Discussed Condition With: Patient, nurse Discharge Planning: Plan to DC home when clinically improved, pending surgical procedure.
[2018-06-19] MEDS ORDERED: Potassium Chlor 20 mEq Premix 20 MEQ/100 ML PIGGYBACK IV.SIG ONE (16:00)
[2018-06-19] MEDS ORDERED: fentaNYL Citrate Inj 250 MCG/5 ML Ampul ONE (16:19)
[2018-06-19] MEDS ORDERED: *Meperidine Inj 25 MG/ML Vial PERIprocedural Use ONLY ONE (17:54)
--- NOTE | 2018-06-19 18:00 | P.OP ---
- Preoperative Diagnosis (1) Acute cholecystitis - Postoperative Diagnosis (1) Acute cholecystitis Date of procedure: 06/19/18 Procedure: Laparoscopic cholecystectomy Anesthesia: MAYANK Surgeon: Jeremy Ngo MD Master Plumber: Rayna Delaney CFA Estimated blood loss (mL): 50 IV fluids (mL): 500 Pathology: other (Gallbladder and contents to pathology) Operation and Findings: Patient was taken to the operating room and placed on the operating table in the supine position. After an adequate level of general endotracheal anesthesia was achieved the abdomen was prepped and draped in the usual fashion. Time-out was taken, confirming the correct patient, site, and procedure to be performed. Skin and subcutaneous tissue was infiltrated with local anesthetic and a supraumbilical midline incision was made for the 12 mm balloon trocar. The fascia was incised and the preperitoneal fascia and fatty tissue was with a hemostat. The peritoneal cavity was directly visualized. A 12 mm balloon trocar was inserted and the balloon inflated. The abdomen was insufflated. The patient was placed in reverse Trendelenburg position. 3 5 mm trochars were then placed, with the first to the right of the falciform ligament , and second and third in the right subcostal region. All entered the abdominal cavity under direct vision uneventfully. The fundus of the gallbladder was then grasped and retracted upward. The gallbladder appeared to be fairly inflamed with pericholecystic fluid around it. The cystic duct infundibular junction and cystic artery were circumferentially dissected. The cystic artery was doubly clipped proximally singly clipped on the gallbladder side and divided. As the patient had normal liver function tests, normal caliber common bile duct and clearly identified anatomy, cholangiogram was not obtained. The cystic duct was then doubly clipped distally, singly clipped on the gallbladder side and divided. The gallbladder was dissected off of the liver bed with electrodissection. The gallbladder was entered at one point and all bile was immediately aspirated. The gallbladder was then completely excised from the liver bed, placed into an Endo Catch device, and removed via the supraumbilical port while observing via the upper 5 mm trocar site. The specimen was passed off the table. The laparoscope was placed once again into the supraumbilical port site in the upper abdomen revisualized. 2 small bleeding points on the liver bed were controlled with electrocautery. With hemostasis assured, all irrigation was aspirated from the abdominal cavity. The cystic artery stump, cystic duct stump, and liver bed were all reexamined and seen to be clean and dry. Insufflation was discontinued and the upper abdominal trochars were removed under direct vision. No bleeding was noted from the trocar sites during desufflation. The laparoscope and supra umbilical port were then removed. The fascia was closed in the supraumbilical port site with 0 Vicryl in an interrupted fashion. Remaining local anesthetic was injected into the trocar sites. The skin was closed at each site with 4-0 Vicryl in an interrupted buried fashion. All sites were dressed with Steri- Strips. The patient was extubated and taken back to the recovery room in stable condition. Sponge and needle counts were reported to be correct. She tolerated the procedure well.
[2018-06-19] MEDS ORDERED: *morphine SULFATE 10 MG/ML PERIprocedure ONLY ONE (18:14)
[2018-06-19] MEDS ORDERED: *Ondansetron Inj 4 MG/2 ML Vial PERIprocedural Use ONLY ONE (18:14)
[2018-06-19] MEDS ORDERED: *morphine SULFATE 4 MG/ML PERIprocedure ONLY ONE (18:33)
[2018-06-19] MEDS ORDERED: HYDROmorphone PF Inj 0.5 MG/0.5 ML Syringe ONE (18:44)
[2018-06-19 20:46] VITALS: RESP 18
[2018-06-20] MEDS: Piperacil/Tazo 4.5 GM Premix 4.5 GM/100 ML BAG IV.SIG SCH ×3 (02:56→13:13)
[2018-06-20] MEDS: Sod Chloride 0.9% Inj 1,000 ML IV.CONT SCH (06:21)
[2018-06-20 06:52] LABS: Hematocrit 35.1 % (35.0-46.0); Hemoglobin 11.9 gm/dL (11.6-15.3); Mean Corpuscular HGB Conc 33.9 % (32.0-36.0); Mean Corpuscular Hemoglobin 30.6 pg (27.0-34.0); Mean Corpuscular Volume 90.3 fL (80.0-100.0); Mean Platelet Volume 8.4 fL (7.0-11.0); Platelet Count 182 th/mm3 (150-450); Red Blood Count 3.88 mil/mm3 (4.00-5.30); Red Cell Distribution Width 13.2 % (11.6-17.2); White Blood Count 4.2 th/mm3 (4.0-11.0)
[2018-06-20 07:12] LABS: Anion Gap 6 meq/L (5-15); Blood Urea Nitrogen 4 mg/dL (7-18); Calcium 8.4 mg/dL (8.5-10.1); Carbon Dioxide 27.2 meq/L (21.0-32.0); Chloride 109 meq/L (98-107); Glomerular Filtration Rate Greater Than 89 mL/min (>89); Glucose,Random 126 mg/dL (74-106); Potassium 3.7 meq/L (3.5-5.1); Sodium 142 meq/L (136-145)
--- NOTE | 2018-06-20 09:45 | P.PNGS ---
Subjective Patient reports: no new complaints (no nausea or vomiting ) Physical Exam Vital signs: Vital Signs 06/19/18 12:00 06/19/18 17:44 06/19/18 18:00 Temperature 98.2 F 97.4 F L Pulse Rate 75 96 H 79 Respiratory Rate 17 20 14 Blood Pressure 107/53 L 131/1 L 117/59 L Pulse Oximetry 95 98 100 06/19/18 18:15 06/19/18 18:26 06/19/18 18:30 Temperature Pulse Rate 84 83 Respiratory Rate 19 15 Blood Pressure 140/68 129/63 Pulse Oximetry 100 100 100 06/19/18 18:45 06/19/18 18:50 06/19/18 20:00 Temperature 98.3 F 97.9 F Pulse Rate 80 91 H Respiratory Rate 13 18 Blood Pressure 125/59 L 106/66 Pulse Oximetry 99 98 98 06/20/18 00:00 06/20/18 04:00 06/20/18 08:00 Temperature 97.6 F 97.4 F L 97.8 F Pulse Rate 80 63 82 Respiratory Rate 18 18 18 Blood Pressure 106/60 105/67 90/54 L Pulse Oximetry 93 L 96 95 Intake & Output 06/19/18 06/20/18 06/20/18 18:59 06:59 18:59 Intake Total 1200 / 1200 1520 / 1520 Output Total 50 / 50 1475 / 1475 Balance 1150 / 1150 45 / 45 Weight 70.2 kg Intake: IV 700 / 700 1200 / 1200 NS Inj 1,000 ML @ 100 mls/hr IV 500 / 500 1000 / 1000 .CONT .Q10H [facility] Rx#:[id number] Zosyn 4.5 GM Premix 4.5 gm In 200 / 200 200 / 200 100 ml @ 200 mls/hr IV.SIG Q6H [facility] Rx#:[id number] Oral 320 / 320 Anesthesia Amount 500 / 500 Output: Urine 1475 / 1475 Estimated Blood Loss 50 / 50 Other: # Voids 3 1 Date of Last Bowel Movement 06/19/18 06/19/18 # Bowel Movements 1 - Routine Abdominal Exam Present: soft (incisional tenderness) Results - Labs 06/20/18 05:31 06/20/18 05:31 Laboratory Results - last 24 hr 06/20/18 06/20/18 05:31 05:31 WBC 4.2 RBC 3.88 L Hgb 11.9 Hct 35.1 MCV 90.3 MCH 30.6 MCHC 33.9 RDW 13.2 Plt Count 182 MPV 8.4 Sodium 142 Potassium 3.7 Chloride 109 H Carbon Dioxide 27.2 Anion Gap 6 BUN 4 L Creatinine 0.58 Estimated GFR Greater than 89 Random Glucose 126 H Calcium 8.4 L - Imaging Imaging: ITS Impressions Abdomen/Pelvis CT 06/18/18 12:05 CONCLUSION: 1. Cholelithiasis. There is a single stone in the gallbladder but no inflammation is present to suggest acute gallbladder disease. 2. There is fluid within the colon consistent with the history of diarrhea. Additionally, the distal ileum is abnormal with mild dilatation and small bowel feces sign which could be secondary to partial obstruction given the appearance. However, there are no findings to indicate any definite acute inflammatory bowel disease. 3. Groundglass opacity and prominent lymph nodes in the jejunal mesentery of uncertain chronicity. This is most commonly seen as a normal variant but can be associated with inflammatory conditions. Gallbladder Ultrasound 06/18/18 12:05 CONCLUSION: 1. There is a single large stone measuring 2.3 cm that appears lodged in the gallbladder neck. It does not move with decubitus positioning. However, there are no associated findings to indicate gallbladder obstruction or inflammation, as above. 2. The remainder of the examination demonstrates no significant abnormality. Please note that the pancreas is not adequately visualized. Assessment and Plan - Assessment (1) Symptomatic cholelithiasis Code(s): K80.20 - Calculus of gallbladder without cholecystitis without obstruction Status: Acute Plan: 48 year old female with symptomatic cholelithiasis; dilated distal ileum s/p lap ariana PLAN OOB po pain control d/c planning likely today
--- NOTE | 2018-06-20 11:51 | P.PNIM ---
Subjective Interval history: Follow-up visit acute cholecystitis, partial small bowel obstruction, status post lap cholecystectomy. Patient seen and examined today. at the bedside. Patient reports she is sore otherwise she is doing okay. Plan to advance diet during lunchtime. This is been discussed with patient. States that umbilical area lap site with some drainage gauze was placed. Discussed wound care, what to look for and what to watch. Verbalized understanding. Denies SOB/ dyspnea. Denies chest pain, palpitations, headaches, dizziness. Denies fevers, chills, n/v/d. Denies dysuria. Physical Exam Vital signs: Vital Signs 06/19/18 12:00 06/19/18 17:44 06/19/18 18:00 Temperature 98.2 F 97.4 F L Pulse Rate 75 96 H 79 Respiratory Rate 17 20 14 Blood Pressure 107/53 L 131/1 L 117/59 L Pulse Oximetry 95 98 100 06/19/18 18:15 06/19/18 18:26 06/19/18 18:30 Temperature Pulse Rate 84 83 Respiratory Rate 19 15 Blood Pressure 140/68 129/63 Pulse Oximetry 100 100 100 06/19/18 18:45 06/19/18 18:50 06/19/18 20:00 Temperature 98.3 F 97.9 F Pulse Rate 80 91 H Respiratory Rate 13 18 Blood Pressure 125/59 L 106/66 Pulse Oximetry 99 98 98 06/20/18 00:00 06/20/18 04:00 06/20/18 08:00 Temperature 97.6 F 97.4 F L 97.8 F Pulse Rate 80 63 82 Respiratory Rate 18 18 18 Blood Pressure 106/60 105/67 90/54 L Pulse Oximetry 93 L 96 95 Intake & Output 06/19/18 06/20/18 06/20/18 18:59 06:59 18:59 Intake Total 1200 / 1200 1520 / 1520 Output Total 50 / 50 1475 / 1475 Balance 1150 / 1150 45 / 45 Weight 70.2 kg Intake: IV 700 / 700 1200 / 1200 NS Inj 1,000 ML @ 100 mls/hr IV 500 / 500 1000 / 1000 .CONT .Q10H LINDA Rx#:[id number] Zosyn 4.5 GM Premix 4.5 gm In 200 / 200 200 / 200 100 ml @ 200 mls/hr IV.SIG Q6H LINDA Rx#:[id number] Oral 320 / 320 Anesthesia Amount 500 / 500 Output: Urine 1475 / 1475 Estimated Blood Loss 50 / 50 Other: # Voids 3 1 Date of Last Bowel Movement 06/19/18 06/19/18 # Bowel Movements 1 Narrative: GENERAL: This is a well-nourished, well-developed patient, in no apparent distress. SKIN: Warm and dry. HEENT: Normocephalic. Pupils equal round and reactive. Nose without bleeding. Airway patent. NECK: Trachea midline. CARDIOVASCULAR: Regular rate and rhythm without murmurs, gallops, or rubs. RESPIRATORY: Clear to auscultation. Breath sounds equal bilaterally. No wheezes , rales, or rhonchi. GASTROINTESTINAL: Abdomen soft, nondistended. Bowel Sounds hypoactive. Tenderness to palpate especially right lower quadrant. MUSCULOSKELETAL: Extremities without clubbing, cyanosis, or edema. NEUROLOGICAL: Awake and alert. Oriented to time, place, person. No focal neuro deficit. Moves all extremities. Normal speech. Results - Labs CBC & Chem 7: 06/20/18 05:31 06/20/18 05:31 Laboratory Results - last 24 hr 06/20/18 06/20/18 05:31 05:31 WBC 4.2 RBC 3.88 L Hgb 11.9 Hct 35.1 MCV 90.3 MCH 30.6 MCHC 33.9 RDW 13.2 Plt Count 182 MPV 8.4 Sodium 142 Potassium 3.7 Chloride 109 H Carbon Dioxide 27.2 Anion Gap 6 BUN 4 L Creatinine 0.58 Estimated GFR Greater than 89 Random Glucose 126 H Calcium 8.4 L Assessment and Plan - Plan 48-year-old female with a history of small bowel resection, Crohn's presented to the ED with complaints of abdominal pain. Partial SBO Hx Crohn's -Abdominal CT reviewed and shows the distal ileum is abnormal with mild dilatation and small bowel feces sign which could be secondary to partial obstruction -Follow-up with GI in the outpatient setting. Follows with advanced gastroenterology Dr. Handy. -Plan to DC if tolerating diet Status post laparoscopic cholecystectomy 06/19/17 Gallbladder US reviewed and shows Cholelithiasis. There is a single stone in the gallbladder but no inflammation is present to suggest acute gallbladder disease -Pain management with IV Dilaudid, Tylenol for KENNEDY -Switch to p.o. [place] -General surgery has followed patient. Advance her diet. -Plan to DC home today when able to tolerate diet and walk around. DVT prophylaxis: SCDs. Full code Discussed Condition With: Patient, , nursing. Discharge Planning: Plan to DC home when clinically improved, pending surgical procedure.
[2018-06-20 12:50] VITALS: BP 113/63; PULSE 70; TEMP 97.5; O2SAT 99
--- NOTE | 2018-06-20 14:07 | P.DS ---
Date of admission: 06/18/18 15:05 Primary care physician: Cheikh Rider MD Attending physician on discharge: Timbo Galeano Anticipated date of discharge: 06/20/18 Brief History from admission: 48-year-old female with a history of small bowel resection, Crohn's presented to the ED with complaints of abdominal pain. She states that the pain began this morning, intermittent, 8/10, to right upper and right lower quadrant, with no radiation, associated nausea, and she has been unable to eat or drink. Last bowel movement was liquid today, last solid was yesterday. She denies any dark colored stools. No chest pain or shortness of breath noted. Patient update on day of discharge: Follow-up visit acute cholecystitis, partial small bowel obstruction, status post lap cholecystectomy. Patient seen and examined today. at the bedside. Patient reports she is sore otherwise she is doing okay. Plan to advance diet during lunchtime. This is been discussed with patient. States that umbilical area lap site with some drainage gauze was placed. Discussed wound care, what to look for and what to watch. Verbalized understanding. Denies SOB/ dyspnea. Denies chest pain, palpitations, headaches, dizziness. Denies fevers, chills, n/v/d. Denies dysuria. DS: Diagnosis - Discharge Diagnosis (1) Acute cholecystitis Status: Acute DS: Medications - Discharge Medications Prescriptions: hydrocodone-acetaminophen [[place]] 1 tab PO Q4H PRN #20 tab PRN Reason: Acute Pain Exception DS: Summary Hospital Course: 48-year-old female with a history of small bowel resection, Crohn's presented to the ED with complaints of abdominal pain. Abdominal CT reviewed and shows the distal ileum is abnormal with mild dilatation and small bowel feces sign which could be secondary to partial obstruction. She has been seeing GI doctor Dr. Handy in the outpatient and will follow up with him, she has hx Crohns. Patient had gallbladder ultrasound shows Cholelithiasis. There is a single stone in the gallbladder but no inflammation is present to suggest acute gallbladder disease. General surgery has been throughout her hospital stay. She is status post laparoscopic cholecystectomy 06/19/17. Able to move around the unit, tolerating diet. Patient will follow up with general surgery and gastroentorologist in the outpatient. Patient has met maximal benefits of hospitalization. Clinically stable for discharge. - Time Spent with Patient Total time spent providing and/or coordinating discharge services: Less than 30 minutes - Quality: VTE Deep Vein Thrombosis/Pulmonary Embolism Present on Admission: No Exam Vital signs: Vital Signs 06/19/18 17:44 06/19/18 18:00 06/19/18 18:15 Temperature 97.4 F L Pulse Rate 96 H 79 84 Respiratory Rate 20 14 19 Blood Pressure 131/1 L 117/59 L 140/68 Pulse Oximetry 98 100 100 06/19/18 18:26 06/19/18 18:30 06/19/18 18:45 Temperature 98.3 F Pulse Rate 83 80 Respiratory Rate 15 13 Blood Pressure 129/63 125/59 L Pulse Oximetry 100 100 99 06/19/18 18:50 06/19/18 20:00 06/20/18 00:00 Temperature 97.9 F 97.6 F Pulse Rate 91 H 80 Respiratory Rate 18 18 Blood Pressure 106/66 106/60 Pulse Oximetry 98 98 93 L 06/20/18 04:00 06/20/18 08:00 06/20/18 10:10 Temperature 97.4 F L 97.8 F Pulse Rate 63 82 Respiratory Rate 18 18 16 Blood Pressure 105/67 90/54 L Pulse Oximetry 96 95 06/20/18 12:00 Temperature 97.5 F L Pulse Rate 70 Respiratory Rate 18 Blood Pressure 113/63 Pulse Oximetry 99 Intake & Output 06/19/18 06/20/18 06/20/18 18:59 06:59 18:59 Intake Total 1200 / 1200 1520 / 1520 520 / 520 Output Total 50 / 50 1475 / 1475 Balance 1150 / 1150 45 / 45 520 / 520 Weight 70.2 kg Intake: IV 700 / 700 1200 / 1200 200 / 200 NS Inj 1,000 ML @ 100 mls/hr IV 500 / 500 1000 / 1000 .CONT .Q10H LINDA Rx#:[id number] Zosyn 4.5 GM Premix 4.5 gm In 200 / 200 200 / 200 200 / 200 100 ml @ 200 mls/hr IV.SIG Q6H LINDA Rx#:[id number] Oral 320 / 320 320 / 320 Anesthesia Amount 500 / 500 Output: Urine 1475 / 1475 Estimated Blood Loss 50 / 50 Other: # Voids 3 1 Date of Last Bowel Movement 06/19/18 06/19/18 06/19/18 # Bowel Movements 1 Narrative: GENERAL: This is a well-nourished, well-developed patient, in no apparent distress. SKIN: Warm and dry. HEENT: Normocephalic. Pupils equal round and reactive. Nose without bleeding. Airway patent. NECK: Trachea midline. CARDIOVASCULAR: Regular rate and rhythm without murmurs, gallops, or rubs. RESPIRATORY: Clear to auscultation. Breath sounds equal bilaterally. No wheezes , rales, or rhonchi. GASTROINTESTINAL: Abdomen soft, nondistended. Bowel Sounds hypoactive. Tenderness to palpate especially right lower quadrant. MUSCULOSKELETAL: Extremities without clubbing, cyanosis, or edema. NEUROLOGICAL: Awake and alert. Oriented to time, place, person. No focal neuro deficit. Moves all extremities. Normal speech. Results Procedures completed during hospitalization: S/P lap cholecystectomy, 06/19/18 Labs on day of discharge: Labs from last 24 hours 06/20/18 06/20/18 05:31 05:31 WBC 4.2 RBC 3.88 L Hgb 11.9 Hct 35.1 MCV 90.3 MCH 30.6 MCHC 33.9 RDW 13.2 Plt Count 182 MPV 8.4 Sodium 142 Potassium 3.7 Chloride 109 H Carbon Dioxide 27.2 Anion Gap 6 BUN 4 L Creatinine 0.58 Estimated GFR Greater than 89 Random Glucose 126 H Calcium 8.4 L - Impressions ITS Impressions Abdomen/Pelvis CT 06/18/18 12:05 CONCLUSION: 1. Cholelithiasis. There is a single stone in the gallbladder but no inflammation is present to suggest acute gallbladder disease. 2. There is fluid within the colon consistent with the history of diarrhea. Additionally, the distal ileum is abnormal with mild dilatation and small bowel feces sign which could be secondary to partial obstruction given the appearance. However, there are no findings to indicate any definite acute inflammatory bowel disease. 3. Groundglass opacity and prominent lymph nodes in the jejunal mesentery of uncertain chronicity. This is most commonly seen as a normal variant but can be associated with inflammatory conditions. Gallbladder Ultrasound 06/18/18 12:05 CONCLUSION: 1. There is a single large stone measuring 2.3 cm that appears lodged in the gallbladder neck. It does not move with decubitus positioning. However, there are no associated findings to indicate gallbladder obstruction or inflammation, as above. 2. The remainder of the examination demonstrates no significant abnormality. Please note that the pancreas is not adequately visualized. Discharge Plan - Discharge Disposition Patient Disposition: 01 Discharge Home - Discharge Condition Condition: Stable - Physicians Team Primary Care Provider: Cheikh Rider Attending Provider: Timbo Galeano Other Providers: Lupillo Handy MD ; Jeremy Ngo MD
== END 2018-06-20 15:52 | disposition home or self-care (01) | DRG 418 ==
LOC: PHED 11:23 → PHEDA 15:05 → N07 19:51
PROVIDERS: ADMIT Hospitalist; ATTEND Hospitalist
CPT/HCPCS: 74177; 76705; 80048; 80053; 81001; 83690; 83735; 85025; 85027; 88304; 90765; 90775; 90776; 96365; 96375; 96376; 99285; J0131; J1170; J2175; J2270; J2405; J2543; J3010; J7030; J7120; Q9967